=== PATIENT | male | born 2000 | race American Indian/Alaskan Native ===

== ENCOUNTER 2020-03-06 13:21 | Emergency (ER) | payer OTHER, MEDICAID ==
[2020-03-06 13:40] VITALS: BP 157/88
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
[2020-03-06 14:33] LABS: Basophils # (Auto) 0.1 K/mm3 (0.0-0.1); Basophils % (Auto) 0.6 % (0.0-1.8); Eosinophils # (Auto) 0.2 K/mm3 (0.0-0.4); Eosinophils % (Auto) 1.8 % (0.0-4.3); Hematocrit 47.1 % (35.5-45.6); Hemoglobin 14.8 gm/dl (11.8-15.2); Lymphocytes # (Auto) 1.9 K/mm3 (1.2-5.4); Lymphocytes % (Auto) 18.1 % (13.4-35.0); Mean Corpuscular HGB Conc 31 % (32-34); Monocytes # (Auto) 0.7 K/mm3 (0.0-0.8); Monocytes % (Auto) 6.5 % (0.0-7.3); Platelet Count 297 K/mm3 (140-440); Red Cell Distribution Width 17.1 % (13.2-15.2)
[2020-03-06 14:35] LABS: Mean Corpuscular Volume 67 fl (84-94)
[2020-03-06 14:51] LABS: Alanine Aminotransferase 22 units/L (7-56); Albumin 4.5 g/dL (3.9-5); BUN/Creatinine Ratio 12; Blood Urea Nitrogen 12 mg/dL (9-20); Calcium 10.4 mg/dL (8.4-10.2); Hemolysis Index 4
--- NOTE | 2020-03-06 15:12 | XRay Report ---
RIGHT KNEE 2 VIEW(S) INDICATION / CLINICAL INFORMATION: right knee pain and trauma COMPARISON: None available. FINDINGS: BONES / JOINT(S): No acute fracture or subluxation. No significant arthritis. SOFT TISSUES: No significant abnormality. ADDITIONAL FINDINGS: None. Signer Name: Ross Campbell MD Signed: 03/06/2020 3:07 PM Workstation Name: [id number]
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
[2020-03-06] MEDS ORDERED: ACETAMINOPHEN 500 MG TAB PO ONE (16:38)
== END 2020-03-06 16:53 | disposition home or self-care (01) ==
LOC: ED 13:21
DX: S09.90XA Unspecified injury of head, initial encounter (principal); S80.01XA Contusion of right knee, initial encounter; S39.81XA Other specified injuries of abdomen, initial encounter; Z79.899 Other long term (current) drug therapy; V47.5XXA Car driver injured in collision with fixed or stationary object in traffic accident, initial encounter; Y93.89 Activity, other specified; Y92.410 Unspecified street and highway as the place of occurrence of the external cause; Y99.8 Other external cause status
CPT/HCPCS: 36415; 80053; 85025